=== PATIENT | female | born 1980 | race Caucasian/White ===

== ENCOUNTER 2017-10-20 15:46 | Emergency (ER) | payer OTHER ==
[2017-10-20] MEDS ORDERED: NS 1,000 ML IV ONE (15:55)
[2017-10-20] MEDS ORDERED: METOCLOPRAMIDE 10 MG/2 ML VIAL IVP ONE (16:22)
[2017-10-20] MEDS ORDERED: ACETAMINOPHEN 325 MG TAB PO ONE (16:22)
[2017-10-20] MEDS ORDERED: KETOROLAC 15 MG/1 ML SDV IVP ONE (16:23)
[2017-10-20 16:27] LABS: PLATELET COUNT 206 10^3/uL (150-400)
--- NOTE | 2017-10-20 16:37 | EDPHY ---
H & P Stated Complaint: DO fatigue, preganant Time Seen by Provider: 10/20/17 15:54 HPI/ROS: This patient is a patient at 23 weeks with headache and generalized weakness. She complains of weakness and fatigue since this morning and more generally generalized fatigue over the past 4 days. She developed gradual onset of headache at 10:30 a.m. This morning that is described as throbbing in nature occipital and frontal in location 7/10 intensity associated with photophobia. This headache feels similar to her past migraine headaches. She reports slight blurred vision associated with this. Her headache worsens with movement. She has not tried any medications for this. She does have associated nausea. She initially presented to the urgent care clinic and was referred here for further evaluation. She is accompanied by her who brought her here by private vehicle. ROS: No fevers chills or other constitutional symptoms except the generalized weakness mentioned in HPI. HEENT: No recent URI symptoms. No sore throat. Infectious disease: No neck stiffness. Pulmonary: She has shortness of breath over the past 6 weeks or so basically she notices dyspnea on exertion. Cardiac: Patient reports presyncopal symptoms Wednesday, 3 days prior to arrival and was reporting a blood pressure of 80/40 at home when she checked at that time. Avoid pressure then return to normal after that episode but she has had some associated finger swelling over the past few days. No further presyncopal episodes since 4 days prior to arrival. GI: No abdominal pain. She has mild nausea currently in decreased appetite but still tolerating p.o. Intake. She reports normal bowel movements. : No urinary symptoms. No vaginal discharge. No vaginal bleeding. Integumentary: No rash Endocrine: No complaints Complete review of symptoms otherwise negative. Source: Patient Exam Limitations: No limitations - Personal History LMP (Females 10-55): Current Tetanus/Diphtheria Vaccine: Yes - Medical/Surgical History PMH: Migraines typically 4 times a year or so. Pre syncopal episodes-frequent. She was seen by Cardiology with echocardiogram showing slight regurgitation some for valves. Patient is uncertain which. She also wore Holter monitor recently but isn't aware of the results yet. She sees a circular saw edge fuser affiliated with a [facility] for this condition named Dr. Loving. Hx Asthma: No Hx Chronic Respiratory Disease: No Hx Diabetes: No Hx Cardiac Disease: No Hx Renal Disease: No Hx Cirrhosis: No Hx Alcoholism: No Hx HIV/AIDS: No Hx Splenectomy or Spleen Trauma: No Other PMH: TACHYCARDIA, pre-syncopal episodes - Family History Significant Family History: No pertinent family hx - Social History Smoking Status: Never smoked Alcohol Use: None Drug Use: None - Physical Exam Exam: Vital signs are normal including blood pressure 123/65. General Appearance: Pleasant 37-year-old female Alert, no distress, but some discomfort due to headache. She prefers dim lighting. Eyes: Pupils equal and round no pallor or injection. ENT, Mouth: Mucous membranes moist. She has no cranial tenderness to palpation. Oropharynx is clear. No dysphonia. Respiratory: There are no retractions, lungs are clear to auscultation. Cardiovascular: Regular rate and rhythm. Appreciate no murmur gallop or rub. No significant peripheral edema. Gastrointestinal: Normoactive, soft, gravid uterus consistent with dates-2nd trimester nontender Neurological: GCS 15. Cranial nerves 2-12 intact. No focal sensory or motor deficits. Skin: Warm and dry, no rashes. Musculoskeletal: Neck is supple nontender. Extremities are symmetrical, full range of motion. Psychiatric: Mood and affect are normal. DIFFERENTIAL DIAGNOSIS: After history and physical exam differential diagnosis was considered for doubt preeclampsia given normal blood pressure, migraine headache, tension headache, anemia, thyroid disease, metabolic disarray Constitutional: Initial Vital Signs Temperature (C) 36.8 C 10/20/17 16:07 Heart Rate 87 10/20/17 16:07 Respiratory Rate 20 10/20/17 16:07 Blood Pressure 120/63 10/20/17 16:07 O2 Sat (%) 97 10/20/17 16:07 O2 Delivery Mode Room Air Allergies/Adverse Reactions: No Known Allergies Allergy (Unverified 07/15/14 15:51) Home Medications: Medication Instructions Recorded Concerta 09/06/15 Ondansetron Odt [Zofran Odt] 4 - 8 mg PO Q4PRN PRN #4 tab 09/06/15 Medical Decision Making ED Course/Re-evaluation: IV normal saline bolus Tylenol p.o., Toradol IV, Reglan and Benadryl IV with resolution of her nausea on marked improvement in her headache down to a 2/10 in intensity. Studies: Normal CBC for -no leukocytosis., metabolic panel is normal. TSH is normal. Urinalysis is normal Discussion: Patient presents with 2nd trimester migraine improved with treatment. She has fatigue in 2nd trimester. We ruled out anemia, thyroid disease or metabolic abnormalities with labs today. Also no evidence of hepatitis or other concerning findings. I counseled patient regarding her results. Given normotensive state, I do not think she has preeclampsia. Patient will go home with plan to take ibuprofen Tylenol if needed for any recurrent headaches and follow up with primary care physician and/or OBGYN for any recurrent symptoms. She understands the need to return emergency department should she develop worsening despite the treatment plan. - Data Points Laboratory Results: Laboratory Results 10/20/17 16:21 10/20/17 16:21 10/20/17 10/20/17 10/20/17 17:20 16:21 16:21 WBC RBC Hgb Hct MCV MCH MCHC RDW Plt Count MPV Neut % (Auto) Lymph % (Auto) [place] % (Auto) Eos % (Auto) Baso % (Auto) Nucleat RBC Rel Count Absolute Neuts (auto) Absolute Lymphs (auto) Absolute Monos (auto) Absolute Eos (auto) Absolute Basos (auto) Absolute Nucleated RBC Immature Gran % Immature Gran # Sodium 135 mEq/L mEq/L (135-145) Potassium 3.6 mEq/L mEq/L (3.5-5.2) Chloride 101 mEq/L mEq/L (97-110) Carbon Dioxide 28 mEq/l mEq/l (22-31) Anion Gap 6 mEq/L L mEq/L (8-16) BUN 13 mg/dL mg/dL (7-23) Creatinine 0.6 mg/dL mg/dL (0.6-1.0) Estimated GFR > 60 Glucose 102 mg/dL H mg/dL (70-100) Calcium 9.5 mg/dL mg/dL (8.5-10.4) Total Bilirubin 0.5 mg/dL mg/dL (0.1-1.4) Conjugated Bilirubin 0.1 mg/dL mg/dL (0.0-0.5) Unconjugated Bilirubin 0.4 mg/dL mg/dL (0.0-1.1) AST 20 IU/L IU/L (14-46) ALT 33 IU/L IU/L (9-52) Alkaline Phosphatase 78 IU/L IU/L (38-126) Total Protein 7.0 g/dL g/dL (6.3-8.2) Albumin 3.5 g/dL g/dL (3.5-5.0) TSH 1.590 uIU/mL uIU/mL (0.465-4.680) Urine Color YELLOW Urine Appearance CLEAR Urine pH 6.5 (5.0-7.5) Ur Specific [place] 1.010 (1.002-1.030) Urine Protein NEGATIVE (NEGATIVE) Urine Ketones NEGATIVE (NEGATIVE) Urine Blood TRACE H (NEGATIVE) Urine Nitrate NEGATIVE (NEGATIVE) Urine Bilirubin NEGATIVE (NEGATIVE) Urine Urobilinogen 0.2 EU EU (0.2-1.0) Ur Leukocyte Esterase NEGATIVE (NEGATIVE) Urine RBC NONE SEEN /hpf /hpf (0-3) Urine WBC NONE SEEN /hpf /hpf (0-3) Ur Epithelial Cells 2+ /lpf H /lpf (NONE-1+) Urine Bacteria 1+ /hpf H /hpf (NONE SEEN) Urine Glucose NEGATIVE (NEGATIVE) 10/20/17 16:21 WBC 5.22 10^3/uL 10^3/uL (3.80-9.50) RBC 3.73 10^6/uL L 10^6/uL (4.18-5.33) Hgb 11.7 g/dL L g/dL (12.6-16.3) Hct 34.5 % L % (38.0-47.0) MCV 92.5 fL fL (81.5-99.8) MCH 31.4 pg pg (27.9-34.1) MCHC 33.9 g/dL g/dL (32.4-36.7) RDW 13.2 % % (11.5-15.2) Plt Count 206 10^3/uL 10^3/uL (150-400) MPV 10.9 fL fL (8.7-11.7) Neut % (Auto) 71.4 % % (39.3-74.2) Lymph % (Auto) 16.7 % % (15.0-45.0) [place] % (Auto) 10.3 % % (4.5-13.0) Eos % (Auto) 0.6 % % (0.6-7.6) Baso % (Auto) 0.4 % % (0.3-1.7) Nucleat RBC Rel Count 0.0 % % (0.0-0.2) Absolute Neuts (auto) 3.73 10^3/uL 10^3/uL (1.70-6.50) Absolute Lymphs (auto) 0.87 10^3/uL L 10^3/uL (1.00-3.00) Absolute Monos (auto) 0.54 10^3/uL 10^3/uL (0.30-0.80) Absolute Eos (auto) 0.03 10^3/uL 10^3/uL (0.03-0.40) Absolute Basos (auto) 0.02 10^3/uL 10^3/uL (0.02-0.10) Absolute Nucleated RBC 0.00 10^3/uL 10^3/uL (0-0.01) Immature Gran % 0.6 % % (0.0-1.1) Immature Gran # 0.03 10^3/uL 10^3/uL (0.00-0.10) Sodium Potassium Chloride Carbon Dioxide Anion Gap BUN Creatinine Estimated GFR Glucose Calcium Total Bilirubin Conjugated Bilirubin Unconjugated Bilirubin AST ALT Alkaline Phosphatase Total Protein Albumin TSH Urine Color Urine Appearance Urine pH Ur Specific [place] Urine Protein Urine Ketones Urine Blood Urine Nitrate Urine Bilirubin Urine Urobilinogen Ur Leukocyte Esterase Urine RBC Urine WBC Ur Epithelial Cells Urine Bacteria Urine Glucose Medications Given: Discontinued Medications Acetaminophen (Tylenol) 975 mg PO EDNOW ONE Stop: 10/20/17 16:23 Last Admin: 10/20/17 16:37 Dose: 975 mg Diphenhydramine HCl (Benadryl Injection) 25 mg IVP EDNOW ONE Stop: 10/20/17 16:23 Last Admin: 10/20/17 16:40 Dose: 25 mg Sodium Chloride (Ns) 1,000 mls @ 0 mls/hr IV EDNOW ONE; Wide Open PRN Reason: Protocol Stop: 10/20/17 15:56 Last Admin: 10/20/17 16:45 Dose: 1,000 mls Ketorolac Tromethamine (Toradol) 15 mg IVP EDNOW ONE Stop: 10/20/17 16:24 Last Admin: 10/20/17 16:40 Dose: 15 mg Metoclopramide HCl (Reglan Injection) 5 mg IVP EDNOW ONE Stop: 10/20/17 16:23 Last Admin: 10/20/17 16:38 Dose: 5 mg Departure - Departure Disposition: Home, Routine, Self-Care Clinical Impression: Nausea, Second trimester Migraine Qualifiers: Migraine type: without aura Status migrainosus presence: without status migrainosus Intractability: not intractable Qualified Code(s): G43.009 - Migraine without aura, not intractable, without status migrainosus Fatigue Qualifiers: Fatigue type: -related Trimester: second trimester Qualified Code(s): O26.812 - related exhaustion and fatigue, second trimester Condition: Good Instructions: Migraine Headache (ED) Additional Instructions: Diagnoses: 1. Migraine 2. Nausea 3. 2nd trimester 4. related Fatigue Plan: Home to rest Tylenol and ibuprofen for headache if needed Follow up with primary care physician. Consider follow up with Neurology for any ongoing symptoms-Dr. Hooker listed below Return to the emergency department for any significant worsening despite the treatment plan. Referrals: NONE *PRIMARY CARE P,. [Primary Care Provider] - As per Instructions Agustin East MD [[facility] Primary Care Provider] - As per Instructions Yang Hooker MD [Medical Doctor] - As per Instructions
[2017-10-20 17:55] VITALS: BP 109/56
== END 2017-10-20 17:58 | disposition home or self-care (01) ==
LOC: CED 15:46
DX: O26.812 Pregnancy related exhaustion and fatigue, second trimester (principal); O99.352 Diseases of the nervous system complicating pregnancy, second trimester; G43.009 Migraine without aura, not intractable, without status migrainosus; E86.9 Volume depletion, unspecified; Z3A.23 23 weeks gestation of pregnancy
CPT/HCPCS: 80048-PO; 80076-PO; 81003-PO; 81015-PO; 84443-PO; 85025-PO; 96374; J1200; J1885; J2765